=== PATIENT | female | born 1995 | race African-American/Black ===

== ENCOUNTER 2016-11-22 07:55 | Emergency (ER) | payer MEDICAID ==
[~2016-11-22] VITALS: Ht 165.1 cm; Wt 100.0 kg
[2016-11-22 08:01] VITALS: BP 161/71; PULSE 94; RESP 18; TEMP 97.9; O2SAT 100
[2016-11-22 08:22] VITALS: BP 117/60; PULSE 75; RESP 15; O2SAT 98
--- NOTE | 2016-11-22 08:51 | PD ---
HPI Chief Complaint: Back/ Neck Pain or Injury Time Seen by Provider: 08:46 Travel History International Travel<30 days: No Contact w/Intl Traveler<30days: No Traveled to known affect area: No History of Present Illness HPI 21-year-old female with history of no significant past medical issues, presents to the ER today because she states she was working out yesterday doing sit ups when she felt sudden onset of lower back pains, radiating down both legs. She denies any incontinence, difficulty walking, weakness, or any other symptoms. She states it hurts to move and walk now. Pain is currently a 10 out of 10 especially with movements. Modifying Factors: Worse with movements Associated Signs & Symptoms: Lower back pain, injury Risk Factors: None PFSH Past Medical History Medical History: Denies Significant Hx ?: Not LMP: AUGUST 2016 Past Surgical History Surgical History: No Previous Surgery Social History Alcohol Use: No Tobacco Use: No Substance Use: No Allergies-Medications (Allergen,Severity, Reaction): Coded Allergies: No Known Allergies (Unverified , 11/22/16) Reported Meds & Prescriptions Reported Meds & Active Scripts Active No Active Prescriptions or Reported Medications Review of Systems Except as stated in HPI: all other systems reviewed are Neg Physical Exam Narrative GENERAL: Well-developed Young -[place] female patient currently in mild distress. Awake and oriented 3. SKIN: Focused skin assessment warm/dry. HEAD: Atraumatic. Normocephalic. EYES: Pupils equal and round. No scleral icterus. No injection or drainage. ENT: No nasal bleeding or discharge. Mucous membranes pink and moist. NECK: Trachea midline. No JVD. CARDIOVASCULAR: Regular rate and rhythm. No murmur appreciated. RESPIRATORY: No accessory muscle use. Clear to auscultation. Breath sounds equal bilaterally. GASTROINTESTINAL: Abdomen soft, non-tender, nondistended. Hepatic and splenic margins not palpable. BACK: No CVA tenderness. No rash. No point tenderness on palpation of the spine. Generalized lower back lumbar tenderness with no point tenderness. MUSCULOSKELETAL: No obvious deformities. No clubbing. No cyanosis. No edema. NEUROLOGICAL: Awake and alert. No obvious cranial nerve deficits. Motor grossly within normal limits. Normal speech. PSYCHIATRIC: Appropriate mood and affect; insight and judgment normal. Data Data Last Documented VS Vital Signs Date Time Temp Pulse Resp B/P (MAP) Pulse Ox O2 Delivery O2 Flow Rate FiO2 9/27/17 08:22 69 15 11/22/16 08:22 117/60 (79) 98 Room Air 11/22/16 08:01 97.9 Orders Orders Spine, Lumbar Comp W/Obliq (11/22/16 08:46) Ibuprofen (Motrin) (11/22/16 09:00) Cyclobenzaprine (Flexeril) (11/22/16 09:00) MDM Medical Decision Making Medical Screen Exam Complete: Yes Emergency Medical Condition: Yes Medical Record Reviewed: Yes Differential Diagnosis Lower back injury: Strain versus fractures versus disc herniation Narrative Course X-rays did not show any signs of acute fractures. At this point, patient has no focal neurological symptoms and she was given ibuprofen and Flexeril the ER. She appears much more comfortable on reevaluation at 9:40 AM. My plan would be to release her with symptomatic relief or pain and muscle spasms and have her avoid heavy weight lifting and strenuous activity for the next week. Follow -up with primary care doctor. Return for worsening in symptoms as needed. The plan has been discussed with her and she states understanding. Diagnosis Primary Impression: Low back strain Med/Other Pt SpecificInfo: Prescription(s) given Scripts Cyclobenzaprine (Flexeril) 10 Mg Tab 10 MG PO TID for Muscle Spasm, #15 TAB 0 Refills Prov: Bear Crews MD 11/22/16 Ibuprofen (Motrin Ib) 200 Mg Tablet 600 MG PO QID Y for PAIN SCALE 1 TO 10, #21 Prov: Bear Crews MD 11/22/16 Disposition: 01 DISCHARGE HOME Condition: Stable Bear Crews MD Nov 22, 2016 08:51
[2016-11-22] MEDS ORDERED: CYCLOBENZAPRINE HCL 10 MG TAB PO ONE (09:00)
[2016-11-22] MEDS ORDERED: IBUPROFEN 600 MG TAB PO ONE (09:00)
--- NOTE | 2016-11-22 09:32 | RADRPT ---
EXAM DATE/TIME: 11/22/2016 09:04 [facility] COMPARISON: No previous studies available for comparison. INDICATIONS : Low back pain x 1 day from exercising MEDICAL HISTORY : None. SURGICAL HISTORY : None. ENCOUNTER: Initial ACUITY: 1 day PAIN SCORE: 6/10 LOCATION: Lumbar spine. FINDINGS: There are five non-rib bearing vertebral bodies. The vertebral bodies are in normal alignment withou t evidence of subluxation or scoliosis. The disc spaces are maintained. The posterior elements are intact without evidence of spondylolysis. The pedicles are intact. Bony mineralization is normal. No fracture is identified. CONCLUSION: Negative Hernan Cesar MD FACR on November 22, 2016 at 9:30 Board Certified Radiologist. This report was verified electronically.
[2016-11-22] MEDS ORDERED: IBUP-1129 PO (09:45)
[2016-11-22] MEDS ORDERED: CYCL1TAB29 PO (09:45)
== END 2016-11-22 10:00 | disposition home or self-care (01) ==
LOC: NEPE 07:55
DX: S39.012A Strain of muscle, fascia and tendon of lower back, initial encounter (principal); Y93.B9 Activity, other involving muscle strengthening exercises
CPT/HCPCS: 72110; 99283

== ENCOUNTER 2017-01-20 02:13 | Emergency (ER) | payer MEDICAID ==
[~2017-01-20] VITALS: Ht 162.6 cm; Wt 87.0 kg
[~2017-01-20 02:13] MED LIST: CYCL10TA PO; IBUP-1129 PO
[2017-01-20 02:16] VITALS: BP 145/83; PULSE 124; RESP 20; TEMP 99; O2SAT 100
[2017-01-20] MEDS ORDERED: SODIUM CHLOR 0.9% 1000 ML INJ 1,000 ML IV SCH (02:32)
[2017-01-20] MEDS ORDERED: FAMOTIDINE 20 MG/2 ML VIAL IV PUSH ONE (02:45)
[2017-01-20] MEDS ORDERED: SODIUM CHLORIDE 0.9% FLUSH 10 ML FLUSH IV FLUSH PRN (02:45)
[2017-01-20] MEDS ORDERED: ONDANSETRON HCL 4 MG/2 ML VIAL IVP ONE (02:45)
[2017-01-20 03:51] LABS: AUTOMATED NEUTROPHIL # 6.6 TH/MM3 (1.8-7.7); BASOPHIL % 0.3 % (0.0-2.0); EOSINOPHIL % 0.1 % (0.0-4.0); HEMATOCRIT 39.6 % (35.0-46.0); HEMO FLAGS DIFF FINAL; LYMPH % 6.5 % (9.0-44.0); LYMPHOCYTE # 0.5 TH/MM3 (1.0-4.8); MEAN CELL VOLUME 79.2 FL (80.0-100.0); MEAN CORPUSCULAR HEMOGLOBIN 26.2 PG (27.0-34.0); MONO % 5.6 % (0.0-8.0); NEUT % 87.5 % (16.0-70.0); PLATELET COUNT 324 TH/MM3 (150-450); RED CELL DISTRIBUTION WIDTH 15.4 % (11.6-17.2); WHITE BLOOD COUNT 7.6 TH/MM3 (4.0-11.0)
[2017-01-20 04:10] LABS: BACTERIA, URINE OCC /hpf; BLOOD, URINE LARGE (NEG); GLUCOSE,URINE NEG (NEG); KETONE, URINE TRACE mg/dL (NEG); MUCUS URINE FEW /lpf (OCC); NITRITE,URINE NEG (NEG); PH, URINE 6.5 (5.0-8.5); SQUAMOUS EPITHELIAL CELL URINE 4 /hpf (0-5)
[2017-01-20 04:11] LABS: URINE COLOR LIGHT-RED (YELLW/STRAW)
[2017-01-20 04:12] LABS: COMMENT (UR) CULTURE INDICATED; CULTURE IF INDICATED CULTURE INDICATED
[2017-01-20 04:12] LABS: ALKALINE PHOSPHATASE 80 U/L (45-117); ALT (GPT) 39 U/L (9-42); TOTAL BILIRUBIN ADULT 0.9 MG/DL (0.2-1.0)
[2017-01-20 04:16] LABS: ANION GAP 8 MEQ/L (5-15); AST (GOT) 43 U/L (16-38); BICARBONATE 25.3 MEQ/L (21.0-32.0); BLOOD UREA NITROGEN 12 MG/DL (7-18); CHLORIDE 101 MEQ/L (98-107); GLOMERULAR FILTRATION RATE 94 ML/MIN (>89); SODIUM (NA) 134 MEQ/L (136-145)
[2017-01-20 04:23] LABS: POTASSIUM 5.5 MEQ/L (3.5-5.1)
[2017-01-20] MEDS ORDERED: IBUPROFEN 600 MG TAB PO ONE (04:45)
--- NOTE | 2017-01-20 04:51 | PD ---
HPI Chief Complaint: GI Complaint Time Seen by Provider: 02:26 Travel History International Travel<30 days: No Contact w/Intl Traveler<30days: No Traveled to known affect area: No History of Present Illness HPI Patient is a 21-year-old female comes in complaining of nausea, vomiting, diarrhea. She also reports lower abdominal pain and back pain. She says this started earlier today. She says it started after eating leftovers from her Thanksgiving dinner. She says she vomited 3 times today and has had multiple episodes of diarrhea. She denies seeing any blood in her stool or vomit. She denies recent antibiotics. She tried taking Motrin, but then vomited. She denies fever or chills. She is currently on her menstrual period. [facility] Past Medical History Medical History: Denies Significant Hx ?: Not LMP: 01/20/2017 Past Surgical History Surgical History: No Previous Surgery Social History Alcohol Use: No Tobacco Use: No Substance Use: No Allergies-Medications (Allergen,Severity, Reaction): Coded Allergies: No Known Allergies (Unverified Adverse Reaction, Unknown, 01/20/17) Reported Meds & Prescriptions Reported Meds & Active Scripts Active Flexeril (Cyclobenzaprine HCl) 10 Mg Tab 10 Mg PO TID Motrin Ib (Ibuprofen) 200 Mg Tablet 600 Mg PO QID PRN Review of Systems Except as stated in HPI: all other systems reviewed are Neg General / Constitutional: No: Fever, Chills HENT: No: Headaches, Lightheadedness Cardiovascular: No: Chest Pain or Discomfort Respiratory: No: Shortness of Breath Gastrointestinal: Positive: Nausea, Vomiting, Diarrhea, Abdominal Pain Genitourinary: Positive: Vaginal Bleeding, No: Dysuria, Hematuria Musculoskeletal: Positive: Pain, No: Edema Skin: No Rash, No Change in Pigmentation Neurologic: No: Weakness, Dizziness Physical Exam Narrative GENERAL: Awake and alert, in no acute distress. SKIN: Focused skin assessment warm/dry. HEAD: Atraumatic. Normocephalic. EYES: Pupils equal and round. No scleral icterus. ENT: Mucous membranes pink and moist. NECK: Trachea midline. No JVD. CARDIOVASCULAR: Regular rate and rhythm. No murmur appreciated. RESPIRATORY: No accessory muscle use. Clear to auscultation. Breath sounds equal bilaterally. GASTROINTESTINAL: Abdomen soft, nondistended. Mild diffuse tenderness, no rebound or guarding. MUSCULOSKELETAL: No obvious deformities. No clubbing. No cyanosis. No edema. NEUROLOGICAL: Awake and alert. No obvious cranial nerve deficits. Motor grossly within normal limits. Normal speech. PSYCHIATRIC: Appropriate mood and affect; insight and judgment normal. Data Data Last Documented VS Vital Signs Date Time Temp Pulse Resp B/P (MAP) Pulse Ox O2 Delivery O2 Flow Rate FiO2 01/20/17 02:16 99.0 124 20 145/83 (103) 100 Orders Orders Complete Blood Count With Diff (01/20/17 02:32) Comprehensive Metabolic Panel (01/20/17 02:32) Lipase (01/20/17 02:32) Urinalysis - C+S If Indicated (01/20/17 02:32) Iv Access Insert/Monitor (01/20/17 02:32) Ecg Monitoring (01/20/17 02:32) Oximetry (01/20/17 02:32) Ondansetron Inj (Zofran Inj) (01/20/17 02:45) Sodium Chlor 0.9% 1000 Ml Inj (Ns 1000 M (01/20/17 02:32) Sodium Chloride 0.9% Flush (Ns Flush) (01/20/17 02:45) Famotidine Inj (Pepcid Inj) (01/20/17 02:45) Ed Urine Pregnancytest Poc (01/20/17 02:32) Urine Culture (01/20/17 03:48) Ibuprofen (Motrin) (01/20/17 04:45) Labs Laboratory Tests Test 01/20/17 03:35 01/20/17 03:48 White Blood Count 7.6 TH/MM3 Red Blood Count 5.00 MIL/MM3 Hemoglobin 13.1 GM/DL Hematocrit 39.6 % Mean Corpuscular Volume 79.2 FL Mean Corpuscular Hemoglobin 26.2 PG Mean Corpuscular Hemoglobin Concent 33.0 % Red Cell Distribution Width 15.4 % Platelet Count 324 TH/MM3 Mean Platelet Volume 8.3 FL Neutrophils (%) (Auto) 87.5 % Lymphocytes (%) (Auto) 6.5 % Monocytes (%) (Auto) 5.6 % Eosinophils (%) (Auto) 0.1 % Basophils (%) (Auto) 0.3 % Neutrophils # (Auto) 6.6 TH/MM3 Lymphocytes # (Auto) 0.5 TH/MM3 Monocytes # (Auto) 0.4 TH/MM3 Eosinophils # (Auto) 0.0 TH/MM3 Basophils # (Auto) 0.0 TH/MM3 CBC Comment DIFF FINAL Differential Comment Blood Urea Nitrogen 12 MG/DL Creatinine 0.92 MG/DL Random Glucose 110 MG/DL Total Protein 8.3 GM/DL Albumin 3.9 GM/DL Calcium Level 9.0 MG/DL Alkaline Phosphatase 80 U/L Aspartate Amino Transf (AST/SGOT) 43 U/L Alanine Aminotransferase (ALT/SGPT) 39 U/L Total Bilirubin 0.9 MG/DL Sodium Level 134 MEQ/L Potassium Level 5.5 MEQ/L Chloride Level 101 MEQ/L Carbon Dioxide Level 25.3 MEQ/L Anion Gap 8 MEQ/L Estimat Glomerular Filtration Rate 94 ML/MIN Lipase 70 U/L Urine Color LIGHT-RED Urine Turbidity HAZY Urine pH 6.5 Urine Specific Ronan 1.030 Urine Protein 30 mg/dL Urine Glucose (UA) NEG mg/dL Urine Ketones TRACE mg/dL Urine Occult Blood LARGE Urine Nitrite NEG Urine Bilirubin NEG Urine Urobilinogen LESS THAN 2.0 MG/DL Urine Leukocyte Esterase MOD Urine RBC /hpf Urine WBC 30 /hpf Urine Squamous Epithelial Cells 4 /hpf Urine Bacteria OCC /hpf Urine Mucus FEW /lpf Microscopic Urinalysis Comment CULTURE INDICATED MDM Medical Decision Making Medical Screen Exam Complete: Yes Emergency Medical Condition: Yes Medical Record Reviewed: Yes Differential Diagnosis gastroenteritis vs dehydration vs UTI Narrative Course Patient is a 21 year old female who comes in complaining of nausea, vomiting, diarrhea. Exam shows mild diffuse tenderness of the abdomen. IV established, labs sent. Labs show no acute abnormalities. Given IVF, Zofran, Famotidine. Patient is requesting food, saying she is hungry. She is able to drink without vomiting. Advised to drink plenty of fluids. Advised to eat a bland diet. Advised to follow up with a primary care doctor. Advised to return to the ED as needed for any worsening symptoms. Diagnosis Primary Impression: Nausea, vomiting and diarrhea Patient Instructions: Acute Nausea and Vomiting (ED), General Instructions Additional Instructions: Drink plenty of fluids. Eat a bland diet. Follow-up with a primary care doctor. Return to the ED as needed for any worsening symptoms. Disposition: 01 DISCHARGE HOME Condition: Stable Marilyn Sanon MD 25, 2017 04:51
[2017-01-20 05:04] VITALS: BP 138/78; PULSE 94; RESP 16; TEMP 98.8; O2SAT 100
== END 2017-01-20 05:11 | disposition home or self-care (01) ==
LOC: NEPE 02:13
DX: R11.2 Nausea with vomiting, unspecified (principal); R19.7 Diarrhea, unspecified; R10.30 Lower abdominal pain, unspecified; B96.89 Other specified bacterial agents as the cause of diseases classified elsewhere; M54.9 Dorsalgia, unspecified; Z79.899 Other long term (current) drug therapy
CPT/HCPCS: 80053; 81001; 83690; 84703; 85025; 87086; 96374; 96375; 99285; J2405; J7030